=== PATIENT | male | born 1975 | race Caucasian/White ===

== ENCOUNTER 2023-03-08 22:43 | Emergency (ER) | payer SELFPAY ==
[2023-03-09] MEDS ORDERED: Cephalexin 500 MG Cap PO ONE (02:11)
== END 2023-03-09 02:36 | disposition home or self-care (01) ==
LOC: MW.ED 22:43
DX: L03.115 Cellulitis of right lower limb (principal)
CPT/HCPCS: 93971; 99283; A9270